=== PATIENT | male | born 1995 | race Caucasian/White ===

== ENCOUNTER 2024-07-20 21:09 | Emergency (ER) | payer BC, SELFPAY ==
[2024-07-20 21:11] VITALS: BP 125/81
[2024-07-20 23:01] VITALS: BP 130/78; BMI 28.6
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
[2024-07-21] MEDS: AUGMENTIN 875 MG/125 MG 1 TABLET PO (00:04)
[2024-07-21] MEDS: ADACEL 0.5 ML IM (00:04)
[2024-07-21 00:42] VITALS: BP 123/78
== END 2024-07-21 00:44 | disposition home or self-care (01) ==
LOC: EMR 21:09
PROVIDERS: EMERGENCY PHYSICIAN Emergency Medicine
DX: S01.81XA Laceration without foreign body of other part of head, initial encounter (principal); W50.3XXA Accidental bite by another person, initial encounter; Y93.67 Activity, basketball; Z23 Encounter for immunization
CPT/HCPCS: 90471; 12013; 99282; 90715